=== PATIENT | female | born 2000 | race Two or more races ===

== ENCOUNTER 2025-09-19 10:40 | Observation (INO) | payer MEDICAID ==
[~2025-09-19] VITALS: Ht 149.9 cm; Wt 93.0 kg
[2025-09-19 19:31] LABS: Hematocrit 36.8 % (36.0-46.0); Hemoglobin 12.7 g/dL (12.2-16.2); Mean Corpuscular Hemoglobin 31.2 pg (28.0-32.0); Mean Corpuscular Volume 90.4 fL (80.0-100.0); Nucleated Red Blood Cells % 0.1 %
[2025-09-19 19:44] LABS: Alanine Aminotransferase 20 U/L (7-40); Albumin 4.0 g/dL (3.2-4.8); Anion Gap 9 (5-15); BUN/Creatinine Ratio 13.7 (10.0-20.0); Calcium 9.8 mg/dL (8.7-10.4); Carbon Dioxide 25 mmol/L (20-31); Chloride 105 mmol/L (98-107); Glucose 81 mg/dL (74-106); Potassium 4.2 mmol/L (3.5-5.1); Sodium 139 mmol/L (136-145); Total Protein 7.1 g/dL (5.7-8.2); Uric Acid 3.9 mg/dL (3.1-7.8)
[2025-09-19 19:50] LABS: Alkaline Phosphatase 141 U/L (46-116); Bilirubin, Total 0.3 mg/dL (0.2-1.0); Blood Urea Nitrogen 7 mg/dL (9-23)
[2025-09-19 20:15] LABS: Urine Protein, UAD Negative (Negative)
[2025-09-19 20:20] LABS: Protein, Urine 12.5 mg/dL (1-14)
[2025-09-19 20:28] LABS: Amphetamine Screen, Urine Neg (NEGATIVE); Barbiturate Scree,Urine Neg (NEGATIVE); Benzodiazephine Screen, Urine Neg (NEGATIVE); Cannabinoid Screen, Urine Neg (NEGATIVE); Cocaine Screen, Urine Neg (NEGATIVE); Opiate Scree,Urine Neg (NEGATIVE); Phencyclidine Screen, Urine Neg (NEGATIVE)
--- NOTE | 2025-09-19 21:00 | DVHDS2 ---
Physician Discharge Progress N Final Diagnosis: rule out preeclampsia Operations or Procedures: Operations or Procedures 25yo IUP@35.0 wks presents to OB triage because Dr. Sheridan sent her in for rule out preeclampsia. Pt had proteinuria in the office today. +FM, denies UCs/LOF/VB/FUNG/Vision changes/RUQ pain. VSS, normotensive (see CPN) NST reactive per RN [facility]/PTL/preE precautions reviewed Dr. Sheridan consulted, agrees with POC. Laboratory Tests Test 09/19/25 19:00 09/19/25 19:04 Range/Units Urine Color Colorless Yellow Urine Clarity Turbid H Clear Urine pH 7.5 5.0-9.0 Urine Specific Mentcle 1.009 1.001-1.035 Urine Protein Negative Negative Urine Ketones Negative Negative Urine Blood Negative Negative /uL Urine Nitrite Negative Negative Urine Bilirubin Negative Negative Urine Urobilinogen Normal Negative mg/dL Urine Leukocyte Esterase 3+ Negative /uL Urine RBC 4 0 - 4 /hpf Urine Microscopic WBC 19 H 0-5 /HPF Urine Squamous Epithelial Cells Mod <5 /hpf Urine Bacteria Few H None Seen /hpf Urine Creatinine 28.00 L 30.0-125.0 mg/dL Urine Protein/Creatinine Ratio 0.45 Urine Glucose Normal Normal mg/dL Urine Total Protein 12.5 1-14 mg/dL Urine Opiates Screen Neg NEGATIVE Urine Fentanyl Screen Neg NEGATIVE Urine Barbiturates Screen Neg NEGATIVE Urine Phencyclidine Screen Neg NEGATIVE Urine Amphetamines Screen Neg NEGATIVE Urine Benzodiazepines Screen Neg NEGATIVE Urine Cocaine Screen Neg NEGATIVE Urine Cannabinoids Screen Neg NEGATIVE White Blood Count 9.0 4.4-10.8 10^3/uL Red Blood Count 4.07 4.0-5.20 10^6/uL Hemoglobin 12.7 12.2-16.2 g/dL Hematocrit 36.8 36.0-46.0 % Mean Corpuscular Volume 90.4 80.0-100.0 fL Mean Corpuscular Hemoglobin 31.2 28.0-32.0 pg Mean Corpuscular Hemoglobin Concent 34.5 32.0-36.0 g/dL Red Cell Distribution Width 14.0 11.8-14.3 % Platelet Count 152 140-450 10^3/uL Mean Platelet Volume 11.3 H 6.9-10.8 fL Neutrophils (%) (Auto) 68.1 37.0-80.0 % Lymphocytes (%) (Auto) 18.3 10.0-50.0 % Monocytes (%) (Auto) 9.8 0.0-12.0 % Eosinophils (%) (Auto) 3.5 0.0-7.0 % Basophils (%) (Auto) 0.3 0.0-2.0 % Neutrophils # (Auto) 6.1 1.6-8.6 10 ^3/uL Lymphocytes # (Auto) 1.7 0.4-5.4 10 ^3/uL Monocytes # (Auto) 0.9 0-1.3 10 ^3/uL Eosinophils # (Auto) 0.3 0-0.8 10 ^3/uL Basophils # (Auto) 0 0-0.2 10 ^3/uL Nucleated Red Blood Cells 0.1 % Sodium Level 139 136-145 mmol/L Potassium Level 4.2 3.5-5.1 mmol/L Chloride Level 105 98-107 mmol/L Carbon Dioxide Level 25 20-31 mmol/L Anion Gap 9 5-15 Blood Urea Nitrogen 7 L 9-23 mg/dL Creatinine 0.51 L 0.550-1.02 mg/dL Glomerular Filtration Rate Calc 133 >90 mL/min BUN/Creatinine Ratio 13.7 10.0-20.0 Serum Glucose 81 74-106 mg/dL Uric Acid 3.9 3.1-7.8 mg/dL Calcium Level 9.8 8.7-10.4 mg/dL Total Bilirubin 0.3 0.2-1.0 mg/dL Aspartate Amino Transferase (AST) 20 13-40 U/L Alanine Aminotransferase (ALT) 20 7-40 U/L Alkaline Phosphatase 141 H 46-116 U/L Total Protein 7.1 5.7-8.2 g/dL Albumin 4.0 3.2-4.8 g/dL Condition on Discharge: Stable Disposition: Home Discharge Instructions: Diet: Regular Activity: No Restrictions, As Tolerated Medications: see med list Follow Up Care: Specialist: f/u in 2 days with a 24hour urine collection Discharge Statement: "Patient was advised to return to the ER or call 911 if any headaches, dizziness, shortness of breath, chest pain, abdominal pain, bleeding, fevers, or worsening of medical condition. Patient was counseled about treatment plan, medications, possible side effects, patientverbalized understanding. All questions were answered to the best of my ability. This discharge took greater then 30 minutes in planning, reviewing docume ntation, counseling the patient, and discussing with other team members." Visit Coding OBGYN Date of Service: Sep 19, 2025 Billing Provider: ALLIE KAUFFMNA CNM STUDY ABROAD ADVISOR Common Visit Codes: [id number] OBS CARE (HIGH) STUDY ABROAD ADVISOR Procedure Codes: 47260-84- NON-STRESS TEST ALLIE KAUFFMAN CNM Sep 19, 2025 21:00
--- NOTE | 2025-09-19 21:28 | DVH ---
OB ULTRASOUND, LIMITED CLINICAL INDICATION: PREECLAMPSIA TECHNIQUE: Multiple grayscale ultrasound and M-mode images were obtained of the pelvis for evaluation of intrauterine . COMPARISON: None FINDINGS: A single living fetus is seen in cephalic presentation. Biophysical profile: 05/11 breathin movement: 2 tone: 2 Amniotic fluid volume: 2 Placenta: Posterior. Amniotic fluid: Adequate, PRUDENCE 4.3 cm heart rate: 137 beats/min. A complete anatomic survey was not performed on this exam. Cervical length is 3.8 cm and closed. IMPRESSION: 1. Biophysical profile: 05/11
== END 2025-09-19 21:39 | disposition home or self-care (01) ==
LOC: UNDOADMOB 10:40 → LDRP 10:40
PROVIDERS: ADMIT Obstetrics & Gynecology; ATTEND Obstetrics & Gynecology
DX: O12.13 Gestational proteinuria, third trimester (principal); Z3A.35 35 weeks gestation of pregnancy; Z79.899 Other long term (current) drug therapy
CPT/HCPCS: 36415; 59025; 76819; 80053; 80307; 81001; 81002; 82570; 82948; 84156; 84550; 85025; A4649; G0378

== ENCOUNTER 2025-09-21 15:53 | Observation (INO) | payer MEDICAID ==
--- NOTE | 2025-09-21 17:00 | DVH ---
BIOPHYSICAL PROFILE HISTORY: pih TECHNIQUE: Multiple transabdominal real-time grayscale sonographic images through the gravid uterus of the fetus with duplex Doppler color flow and M-mode spectral analysis FINDINGS: BIOPHYSICAL PROFILE: breathing score: 2 movement score: 2 tone score: 2 Quantitative PRUDENCE score: 2 (PRUDENCE: 13.9 cm, mvp: 4.5 cm.) Total score: 8/8 The cervix N/V Single live fetus in cephalic presentation. heart rate 157 beats per minute. Posterior Grade 2 placenta without previa or abruption Single live fetus at 35 weeks 3 days Biophysical profile score 8/8 corresponding to an MOUNIKA of 10/24/2025 Estimated weight not calculated g IMPRESSION: 1. Biophysical profile score: 8/8 2. FHR: 157 bpm
[2025-09-21 17:12] LABS: Urine Protein, UAD Negative (Negative)
[2025-09-21 17:26] LABS: Protein, Urine 21.2 mg/dL (1-14)
[2025-09-21 17:32] LABS: Urine Total Volume, 24 Hours 2400.0 mL
[2025-09-21 17:33] LABS: 24 Hr. Total Protein, Urine 508.8 mg/24 Hr (<149.1); Protein, Urine 21.2 mg/dL (1-14)
--- NOTE | 2025-09-22 07:06 | DVHDS2 ---
Physician Discharge Progress N Final Diagnosis: pih 35wks Operations or Procedures: Operations or Procedures nst reactive reviwed,nuzhato Condition on Discharge: Good Disposition: Home Discharge Instructions: Diet: Regular Activity: Light activity Medications: na Follow Up Care: Specialist: 2d Discharge Statement: "Patient was advised to return to the ER or call 911 if any headaches, dizziness, shortness of breath, chest pain, abdominal pain, bleeding, fevers, or worsening of medical condition. Patient was counseled about treatment plan, medications, possible side effects, patientverbalized understanding. All questions were answered to the best of my ability. This discharge took greater then 30 minutes in planning, reviewing documentation, counseling the patient, and discussing with other team members." Visit Coding OBGYN Date of Service: Sep 21, 2025 Billing Provider: PRASAD COOPER DO MASTER LAY OUT SPECIALIST Common Visit Codes: [id number] INP/OBS CARE (HIGH) MASTER LAY OUT SPECIALIST Procedure Codes: 00694-62- NON-STRESS TEST PRASAD COOPER DO Sep 22, 2025 07:06
== END 2025-09-21 17:39 | disposition home or self-care (01) ==
LOC: LDRP 15:53
PROVIDERS: ADMIT Obstetrics & Gynecology; ATTEND Obstetrics & Gynecology
DX: O13.3 Gestational [pregnancy-induced] hypertension without significant proteinuria, third trimester (principal); Z3A.35 35 weeks gestation of pregnancy; Z98.890 Other specified postprocedural states
CPT/HCPCS: 59025; 76819; 81001; 82570; 84156; 94760; G0378

== ENCOUNTER 2025-09-24 15:49 | Observation (INO) | payer MEDICAID ==
[2025-09-24] MEDS ORDERED: PREN-96 PO (16:07)
--- NOTE | 2025-09-24 17:05 | DVH ---
BIOPHYSICAL PROFILE HISTORY: PIH TECHNIQUE: Multiple real-time grayscale sonographic images through the gravid uterus of the fetus with duplex Doppler color flow. FINDINGS: BIOPHYSICAL PROFILE: breathing score: 2 movement score: 2 tone score: 2 Quantitative PRUDENCE score: 2 Total score: 8 out of 8 Single live intrauterine . heart rate 139 beats per minute. Placenta posteriorly positioned. lie cephalic. IMPRESSION: Biophysical profile score: 8 out of 8
--- NOTE | 2025-09-24 19:11 | DVHDS2 ---
Physician Discharge Progress N Final Diagnosis: testing for preE Operations or Procedures: Operations or Procedures 25yo IUP@35.5wks, Denies UCs/LOF/VB/FUNG/vision changes/RUQ pain. Endorses +FM. VSS NST reactive per RN 24hr urine collection on 09/21/25 was 508.8 [facility]/PTL/preE precautions reviewed Dr. Sheridan consulted, agrees with POC. Other Interventions Other Interventions [place] [address] Ph: [phone] DIAGNOSTIC IMAGING Diagnostic Imaging Report : [id number] Signed PATIENT: DEMIAN FLORES ACCT: [id number] UNIT: [id number] : 2000 LOC: [facility] ROOM / BED: TRIAGE1 / A AGE / SEX: 25 / F ADM STATUS: ADM IN SERVICE 1603 ORDERING PHYSICIAN: ALLIE KAUFFMAN CNM PROCEDURE(s): BPP - BIOPHYSICAL PROFILE REASON: [facility] ORDER NUMBER(s): [id number], ACCESSION NUMBER(s): [id number] BIOPHYSICAL PROFILE HISTORY: PIH TECHNIQUE: Multiple real-time grayscale sonographic images through the gravid uterus of the fetus with duplex Doppler color flow. FINDINGS: BIOPHYSICAL PROFILE: breathing score: 2 movement score: 2 tone score: 2 Quantitative PRUDENCE score: 2 Total score: 8 out of 8 Single live intrauterine . heart rate 139 beats per minute. Placenta posteriorly positioned. lie cephalic. IMPRESSION: Biophysical profile score: 8 out of 8 ATED BY: RAMON ALCALA MD DICTATED DATE/TIME: 09/24/251702 SIGNED BY: RAMON ALCALA MD SIGNED DATE/TIME: 09/24/251702 CC: Condition on Discharge: Stable Disposition: Home Discharge Instructions: Diet: Regular Activity: No Restrictions, As Tolerated Follow Up/Referral: as scheduled Medications: see med list Follow Up Care: Specialist: f/u in 3 days Discharge Statement: "Patient was advised to return to the ER or call 911 if any headaches, dizziness, shortness of breath, chest pain, abdominal pain, bleeding, fevers, or worsening of medical condition. Patient was counseled about treatment plan, medications, possible side effects, patientverbalized understanding. All questions were answered to the best of my ability. This discharge took greater then 30 minutes in planning, reviewing documentation, counseling the patient, and discussing with other team members." Visit Coding OBGYN Date of Service: Sep 24, 2025 Billing Provider: ALLIE KAUFFMAN CNM SAFETY EQUIPMENT TESTER Common Visit Codes: [id number] OBS CARE (HIGH) SAFETY EQUIPMENT TESTER Procedure Codes: 25811-99- NON-STRESS TEST ALLIE KAUFFMAN CNM Sep 24, 2025 19:11
== END 2025-09-24 17:21 | disposition home or self-care (01) ==
LOC: LDRP 15:49
PROVIDERS: ADMIT Obstetrics & Gynecology; ATTEND Obstetrics & Gynecology
DX: O13.3 Gestational [pregnancy-induced] hypertension without significant proteinuria, third trimester (principal); Z3A.35 35 weeks gestation of pregnancy; Z98.890 Other specified postprocedural states
CPT/HCPCS: 59025; 76819; 81002; 94760; A4649; G0378

== ENCOUNTER 2025-09-28 11:57 | Observation (INO) | payer MEDICAID ==
[~2025-09-28 11:57] MED LIST: PREN-96 PO
--- NOTE | 2025-09-28 13:22 | DVH ---
BIOPHYSICAL PROFILE HISTORY: Pre-eclampsia TECHNIQUE: Multiple real-time grayscale sonographic images through the gravid uterus of the fetus with duplex Doppler color flow. FINDINGS: BIOPHYSICAL PROFILE: breathing score: 2 movement score: 2 tone score: 2 Quantitative PRUDENCE score: 2 Total score: 8 out of 8 Single live intrauterine . Placenta posteriorly positioned. Placenta calcifications. lie cephalic. PRUDENCE 17.7 cm. IMPRESSION: Biophysical profile score: 8 out of 8 Placental calcifications.
--- NOTE | 2025-09-28 14:37 | DVHDS2 ---
Physician Discharge Progress N Final Diagnosis: pih 35wks Operations or Procedures: Operations or Procedures nst reactive reviwed,sono Condition on Discharge: Good Disposition: Home Discharge Instructions: Diet: Regular, Cardiac 2g Na,low cholest Activity: No Restrictions, As Tolerated Medications: na Follow Up Care: Specialist: 4d Discharge Statement: "Patient was advised to return to the ER or call 911 if any headaches, dizziness, shortness of breath, chest pain, abdominal pain, bleeding, fevers, or worsening of medical condition. Patient was counseled about treatment plan, medications, possible side effects, patientverbalized understanding. All questions were answered to the best of my ability. This discharge took greater then 30 minutes in planning, reviewing documentation, counseling the patient, and discussing with other team members." Visit Coding OBGYN Date of Service: Sep 28, 2025 Billing Provider: PRASAD COOPER DO COLOR CARD MAKER Common Visit Codes: [id number] OBS CARE (HIGH) COLOR CARD MAKER Procedure Codes: 31441-63- NON-STRESS TEST PRASAD COOPER DO Sep 28, 2025 14:36
== END 2025-09-28 14:04 | disposition home or self-care (01) ==
LOC: LDRP 11:57 → UNDOADMOB 11:57 → LDRP 12:07
PROVIDERS: ADMIT Obstetrics & Gynecology; ATTEND Obstetrics & Gynecology
DX: O13.3 Gestational [pregnancy-induced] hypertension without significant proteinuria, third trimester (principal); Z3A.35 35 weeks gestation of pregnancy; Z79.899 Other long term (current) drug therapy; Z98.890 Other specified postprocedural states
CPT/HCPCS: 59025; 76819; 81002; 94760; A4649; G0378

== ENCOUNTER 2025-10-02 07:44 | Observation (INO) | payer MEDICAID ==
[~2025-10-02] VITALS: Ht 149.9 cm; Wt 93.0 kg
--- NOTE | 2025-10-02 13:23 | DVH ---
BIOPHYSICAL PROFILE HISTORY: PREE TECHNIQUE: Multiple transabdominal real-time grayscale sonographic images through the gravid uterus of the fetus with duplex Doppler color flow and M-mode spectral analysis FINDINGS: Biophysical score of 8/8. heart rate of 130 beats per minute. Cephalic position. PRUDENCE of 16.1 cm. Posterior placental location. No placenta previa or abruptio. Cervix measures 3.8 cm. It is closed IMPRESSION: 1. Biophysical profile score: 8/8
[2025-10-02 13:50] LABS: Protein, Urine 13.3 mg/dL (1-14)
[2025-10-02 14:02] LABS: 24 Hr. Total Protein, Urine 232.7 mg/24 Hr (<149.1); Urine Total Volume, 24 Hours 1750.0 mL
[2025-10-02 15:03] LABS: Hematocrit 38.5 % (36.0-46.0); Hemoglobin 12.9 g/dL (12.2-16.2); Mean Corpuscular Hemoglobin 30.3 pg (28.0-32.0); Mean Corpuscular Volume 90.1 fL (80.0-100.0); Nucleated Red Blood Cells % 0.0 %
[2025-10-02 15:26] LABS: Alanine Aminotransferase 16 U/L (7-40); Albumin 3.9 g/dL (3.2-4.8); Anion Gap 8 (5-15); BUN/Creatinine Ratio 9.7 (10.0-20.0); Bilirubin, Total 0.3 mg/dL (0.2-1.0); Calcium 9.2 mg/dL (8.7-10.4); Carbon Dioxide 23 mmol/L (20-31); Chloride 106 mmol/L (98-107); Glucose 75 mg/dL (74-106); Potassium 4.2 mmol/L (3.5-5.1); Sodium 137 mmol/L (136-145); Total Protein 6.9 g/dL (5.7-8.2); Uric Acid 4.7 mg/dL (3.1-7.8)
[2025-10-02 15:28] LABS: Alkaline Phosphatase 160 U/L (46-116); Blood Urea Nitrogen 6 mg/dL (9-23)
[2025-10-02 15:32] LABS: INR 0.92 (0.9-1.15); Partial Thromboplastin Time 27.7 SEC (24.5-34.5); Prothrombin Time 9.8 sec (9.3-11.8)
--- NOTE | 2025-10-02 18:08 | DVHDS2 ---
Physician Discharge Progress N Final Diagnosis: iup at 35wks pih Operations or Procedures: Operations or Procedures nst reactive reviwed,sono Condition on Discharge: Good Disposition: Home Discharge Instructions: Diet: Regular Activity: Light activity Medications: na Follow Up Care: Specialist: 3d Discharge Statement: "Patient was advised to return to the ER or call 911 if any headaches, dizziness, shortness of breath, chest pain, abdominal pain, bleeding, fevers, or worsening of medical condition. Patient was counseled about treatment plan, medications, possible side effects, patientverbalized understanding. All questions were answered to the best of my ability. This discharge took greater then 30 minutes in planning, reviewing documentation, counseling the patient, and discussing with other team members." Visit Coding OBGYN Date of Service: Oct 02, 2025 Billing Provider: PRASAD COOPER DO LINE STAKER Common Visit Codes: [id number] INP/OBS CARE (HIGH) LINE STAKER Procedure Codes: 62307-39- NON-STRESS TEST PRASAD COOPER DO Oct 02, 2025 18:08
== END 2025-10-02 15:51 | disposition home or self-care (01) ==
LOC: LDRP 12:10 → UNDOADMOB 12:10 → LDRP 12:25
PROVIDERS: ADMIT Obstetrics & Gynecology; ATTEND Obstetrics & Gynecology
DX: O13.3 Gestational [pregnancy-induced] hypertension without significant proteinuria, third trimester (principal); Z3A.35 35 weeks gestation of pregnancy; Z79.899 Other long term (current) drug therapy; Z98.890 Other specified postprocedural states
CPT/HCPCS: 36415; 59025; 76819; 80053; 81002; 82570; 84156; 84550; 85025; 85610; 85730; 94760; A4649; G0378